=== PATIENT | male | born 2000 | race Two or more races ===

== ENCOUNTER 2022-09-02 09:57 | Emergency (ER) | payer OTHER ==
[~2022-09-02] VITALS: Ht 180.3 cm; Wt 136.1 kg
[2022-09-02 10:07] VITALS: BP 134/70
--- NOTE | 2022-09-02 10:56 | NUR ---
Patient discharged to home in stable condition. Written and verbal after care instructions given. Patient verbalizes understanding of instruction.
== END 2022-09-02 10:56 | disposition home or self-care (01) ==
LOC: ER 10:10
DX: R09.89 Other specified symptoms and signs involving the circulatory and respiratory systems (principal)

== ENCOUNTER 2023-10-20 12:46 | Emergency (ER) | payer OTHER ==
[~2023-10-20] VITALS: Ht 180.3 cm; Wt 127.0 kg
[2023-10-20 12:52] VITALS: BP 141/77; TEMP 98.7
[2023-10-20] MEDS ORDERED: IBUP-1955 PO (14:48)
[2023-10-20 14:52] VITALS: O2SAT 100
== END 2023-10-20 14:53 | disposition home or self-care (01) ==
LOC: ER 12:49
DX: S90.32XA Contusion of left foot, initial encounter (principal); E03.9 Hypothyroidism, unspecified; Z60.2 Problems related to living alone; W22.8XXA Striking against or struck by other objects, initial encounter; Y93.89 Activity, other specified; Y92.89 Other specified places as the place of occurrence of the external cause; Y99.8 Other external cause status
CPT/HCPCS: 73630-TC